=== PATIENT | male | born 1970 | race Caucasian/White ===

== ENCOUNTER 2016-09-30 20:20 | Inpatient (IN) | payer SELFPAY ==
[~2016-09-30] VITALS: Ht 175.3 cm; Wt 109.9 kg
[2016-09-30] VITALS (8 sets, daily range): BP systolic 132–160; BP diastolic 68–98; PULSE 108–154; RESP 20–38; TEMP 99.8; O2SAT 89–100
[~2016-09-30 20:20] MED LIST: IBUP-232 PO; ROBA750T PO
[2016-09-30] MEDS ORDERED: SODIUM CHLORIDE 0.9% FLUSH 10 ML FLUSH IVF PRN ×2 (20:30→22:15)
[2016-09-30] MEDS ORDERED: methylPREDNISolone SOD SUCC 125 MG/2 ML VIAL IVP ONE (20:30)
[2016-09-30] MEDS ORDERED: MAGNESIUM SULFATE 1 GM PREMIX 100 ML IV ONE (20:30)
[2016-09-30] MEDS: RESP: ALBUTEROL 2.5 MG/IPRATROPIUM 0.5 MG NEB (SCH) INH ×2 (20:30→20:31)
[2016-09-30 20:36] LABS: AUTOMATED NEUTROPHIL # 21.8 TH/MM3 (1.8-7.7); BASOPHIL # 0.1 TH/MM3 (0-0.2); BASOPHIL % 0.3 % (0.0-2.0); EOSINOPHIL % 0.1 % (0.0-4.0); HEMATOCRIT 44.1 % (39.0-51.0); LYMPHOCYTE # 1.5 TH/MM3 (1.0-4.8); MEAN CELL VOLUME 91.1 FL (80.0-100.0); MEAN CORPUSCULAR HEMOGLOBIN 30.6 PG (27.0-34.0); MEAN CORPUSCULAR HGB CONC 33.5 % (32.0-36.0); MONO % 6.2 % (0.0-8.0); NEUT % 87.4 % (16.0-70.0); PLATELET COUNT 314 TH/MM3 (150-450); RED BLOOD COUNT 4.84 MIL/MM3 (4.50-5.90); RED CELL DISTRIBUTION WIDTH 13.3 % (11.6-17.2); WHITE BLOOD COUNT 24.9 TH/MM3 (4.0-11.0)
[2016-09-30 20:40] LABS: HEMO FLAGS DIFF FINAL
--- NOTE | 2016-09-30 20:42 | PD ---
HPI Chief Complaint: Respiratory Distress Time Seen by Provider: 20:24 Travel History International Travel<30 days: No Contact w/Intl Traveler<30days: No Traveled to known affect area: No History of Present Illness HPI 46-year-old male presents to the emergency department by private transportation for marked shortness of breath with wheezing. Patient has history of asthma and has recently been on azithromycin for a sinus infection. No relief from rescue inhaler. Patient complains of marked shortness of breath and speaks in fragmented sentences. No report of chest pain. No fever. PFSH Past Medical History Narrative Medical Asthma bronchitis alcohol use nursing notes reviewed Social History Alcohol Use: Yes (OCC) Tobacco Use: No (JUST QUIT 1 PPD) Substance Use: No Allergies-Medications (Allergen,Severity, Reaction): Coded Allergies: No Known Allergies (Verified , 09/30/16) Reported Meds & Prescriptions Reported Meds & Active Scripts Active Robaxin (Methocarbamol) 750 Mg Tab 750 Mg PO TID PRN Ibuprofen 600 Mg Tab 600 Mg PO TID PRN Narrative Medication Azithromycin rescue inhaler Review of Systems Except as stated in HPI: all other systems reviewed are Neg General / Constitutional: No: Fever HENT: Positive: Congestion Cardiovascular: Positive: Diaphoresis, No: Chest Pain or Discomfort Respiratory: Positive: Cough, Shortness of Breath, Wheezing Gastrointestinal: Positive: Nausea Genitourinary: No: Flank Pain Musculoskeletal: No: Pain Skin: No Rash Neurologic: No: Syncope Psychiatric: Positive: Anxiety Hematologic/Lymphatic: No: Lymph Node Enlargement Physical Exam Narrative GENERAL: Well-developed well-nourished obese male in respiratory distress SKIN: Warm and dry. HEAD: Normocephalic. EYES: No scleral icterus. No injection or drainage. NECK: Supple, trachea midline. No JVD or lymphadenopathy. CARDIOVASCULAR: Increased Regular rate and rhythm without murmurs, gallops, or rubs. RESPIRATORY: Breath sounds equal bilaterally markedly diminished with end expiratory wheezes and prolonged inspiratory to expiratory ratio. No accessory muscle use. GASTROINTESTINAL: Abdomen soft, non-tender, nondistended. MUSCULOSKELETAL: No cyanosis, or edema. BACK: Nontender without obvious deformity. No CVA tenderness. Data Data Last Documented VS Vital Signs Date Time Temp Pulse Resp B/P Pulse Ox O2 Delivery O2 Flow Rate FiO2 09/30/16 21:38 123 24 144/75 95 Nasal Cannula 2 09/30/16 20:20 99.8 Orders Complete Blood Count With Diff (09/30/16 20:24) Basic Metabolic Panel (Bmp) (09/30/16 20:24) B-Type Natriuretic Peptide (09/30/16 20:24) Act Partial Throm Time (Ptt) (09/30/16 20:24) Prothrombin Time / Inr (Pt) (09/30/16 20:24) Magnesium (Mg) (09/30/16 20:24) Ckmb (Isoenzyme) Profile (09/30/16 20:24) Troponin I (09/30/16 20:24) Blood Culture (09/30/16 20:24) Iv Access Insert/Monitor (09/30/16 20:24) Electrocardiogram (09/30/16 20:24) Ecg Monitoring (09/30/16 20:24) Oximetry (09/30/16 20:24) Oxygen Administration (09/30/16 20:24) Chest, Single Ap (09/30/16 20:24) Sodium Chloride 0.9% Flush (Ns Flush) (09/30/16 20:30) Methylprednisolone So Succ Inj (Solumedr (09/30/16 20:30) Albuterol-Ipratropium Neb (Duoneb Neb) (09/30/16 20:30) Lactic Acid (09/30/16 20:24) Magnesium Sulfate 1 Gm Premix (Magnesium (09/30/16 20:30) Ondansetron Inj (Zofran Inj) (09/30/16 20:45) CKMB (09/30/16 20:25) CKMB% (09/30/16 20:25) Albuterol-Ipratropium Neb (Duoneb Neb) (09/30/16 21:00) Piperacil-Tazo 4.5 Gm Premix (Zosyn 4.5 (09/30/16 21:00) Sputum Culture And Gram Stain (09/30/16 20:59) Admit Order (Ed Use Only) (09/30/16 ) ^ Saline Lock (09/30/16 22:04) Resp Oxygen Tye C Titrat 1-4 L (09/30/16 ) Notify Dr: Other (09/30/16 22:04) Sodium Chloride 0.9% Flush (Ns Flush) (10/01/16 09:00) Sodium Chloride 0.9% Flush (Ns Flush) (09/30/16 22:15) Sodium Chlor 0.9% 1000 Ml Inj (Ns 1000 M (09/30/16 22:15) Labs Laboratory Tests Test 09/30/16 20:25 White Blood Count 24.9 TH/MM3 Red Blood Count 4.84 MIL/MM3 Hemoglobin 14.8 GM/DL Hematocrit 44.1 % Mean Corpuscular Volume 91.1 FL Mean Corpuscular Hemoglobin 30.6 PG Mean Corpuscular Hemoglobin 33.5 % Concent Red Cell Distribution Width 13.3 % Platelet Count 314 TH/MM3 Mean Platelet Volume 7.3 FL Neutrophils (%) (Auto) 87.4 % Lymphocytes (%) (Auto) 6.0 % Monocytes (%) (Auto) 6.2 % Eosinophils (%) (Auto) 0.1 % Basophils (%) (Auto) 0.3 % Neutrophils # (Auto) 21.8 TH/MM3 Lymphocytes # (Auto) 1.5 TH/MM3 Monocytes # (Auto) 1.5 TH/MM3 Eosinophils # (Auto) 0.0 TH/MM3 Basophils # (Auto) 0.1 TH/MM3 CBC Comment DIFF FINAL Differential Comment Prothrombin Time 10.2 SEC Prothromb Time International 0.9 RATIO Ratio Activated Partial 23.1 SEC Thromboplast Time Sodium Level 139 MEQ/L Potassium Level 3.6 MEQ/L Chloride Level 106 MEQ/L Carbon Dioxide Level 23.1 MEQ/L Anion Gap 10 MEQ/L Blood Urea Nitrogen 13 MG/DL Creatinine 1.20 MG/DL Estimat Glomerular Filtration 66 ML/MIN Rate Random Glucose 152 MG/DL Lactic Acid Level 4.5 mmol/L Calcium Level 8.9 MG/DL Magnesium Level 2.3 MG/DL Total Creatine Kinase 183 U/L Creatine Kinase MB 4.5 NG/ML Troponin I LESS THAN 0.02 NG/ML B-Type Natriuretic Peptide 80 PG/ML MDM Medical Decision Making Medical Screen Exam Complete: Yes Emergency Medical Condition: Yes Medical Record Reviewed: Yes Interpretation(s) EKG: Sinus tachycardia rate [address] elevation or injury pattern change or ectopy noted Troponin I less than 0.02, not elevated; CK: 183, not elevated; BNP: 80, elevated Lactic acid: 4.5, elevated Last Impressions Chest X-Ray 09/30/162023 Signed Impressions: Service Date/Time: September 20:39 - CONCLUSION: The lungs are clear. Luís Lamb MD CBC & BMP Diagram 09/30/16 20:25 Vital Signs Date Time Temp Pulse Resp B/P Pulse Ox O2 Delivery O2 Flow Rate FiO2 09/30/16 21:38 123 24 144/75 95 Nasal Cannula 2 09/30/16 21:00 154 32 148/89 95 09/30/16 20:45 145 36 154/95 94 Aerosol Mask 2 09/30/16 20:30 94 Aerosol Mask 09/30/16 20:30 147 38 160/97 94 09/30/16 20:20 99.8 148 38 89 Room Air Differential Diagnosis Exacerbation asthma, status asthmaticus, pneumonia, CHF, ACS; also to consider PE, pneumothorax, pleural effusion Narrative Course Patient placed on cardiac rehabilitation program director respiratory notified updraft treatments; patient administered Solu-Medrol 105 mg IV along with 3 DuoNeb updrafts: IV access obtained specimens collected and sent for resulting patient administered Zosyn 4.5 g IV PB patient has taken azithromycin times one dose today Patient with ongoing workup breathing seemed to respond to updraft treatments Patient is improving clinically no longer diaphoretic or markedly decayed neck remains mildly tachycardic Patient able now to speak in complete sentences aware of plan for admission chest x-ray reveals no lobar infiltrate; lactic acid is elevated along with leukocytosis with left shift most likely reflective of infectious process as well as stress demargination and mild dehydration Patient's case discussed with on-call medicine admission for exacerbation asthma and sepsis. Critical Care Narrative Aggregate critical care time was 35 minutes. Time to perform other separately billable procedures was not included in the critical care time. My time did not include minutes spent treating any other patients simultaneously or on activities that did not directly contribute to the patient's treatment. The services I provided to this patient were to treat and/or prevent clinically significant deterioration that could result in: Status asthmaticus, septic shock , respiratory arrest, I provided critical care services requiring my management, as noted below: Chart data review, documentation time, medication orders and management, vital sign assessments/reviewing monitor data, ordering and reviewing lab tests, ordering and interpreting/reviewing x-rays and diagnostic studies, care of the patient and discussion of the patient with the admitting physicians. Sepsis Criteria SIRS Criteria (2 or more): Heart rate over 90, RR > 20 or PaCO2 < 32, WBC > 19339, < 4000 or > 10% bands Sepsis Criteria (SIRS+source): Infect source susp/known (pulmonary) Severe Sepsis (+one): Lactate >2 Physician Communication Physician Communication discussed with Dr Cheek==admit Diagnosis Primary Impression: Exacerbation of asthma Additional Impression: Sepsis Qualified Code: A41.9 - Sepsis, due to unspecified organism Admitting Information Admitting Physician Requests: Karina Whitfield MD Sep 30, 2016 20:42 I provided critical care services requiring my management, as noted below: Chart data review, documentation time, medication orders and management, vital sign assessments/reviewing monitor data, ordering and reviewing lab tests, ordering and interpreting/reviewing x-rays and diagnostic studies, care of the patient and discussion of the patient with the admitting physicians. Sepsis Criteria SIRS Criteria (2 or more): Heart rate over 90, RR > 20 or PaCO2 < 32, WBC > 02470, < 4000 or > 10% bands Sepsis Criteria (SIRS+source): Infect source susp/known (pulmonary) Severe Sepsis (+one): Lactate >2 Physician Communication Physician Communication discussed with Dr Cheek==admit Diagnosis Primary Impression: Exacerbation of asthma Additional Impression: Sepsis Qualified Code: A41.9 - Sepsis, due to unspecified organism Admitting Information Admitting Physician Requests: Karina Whitfield MD Sep 30, 2016 20:42
[2016-09-30 20:43] LABS: CHLORIDE 106 MEQ/L (98-107); POTASSIUM 3.6 MEQ/L (3.5-5.1); SODIUM (NA) 139 MEQ/L (136-145)
[2016-09-30] MEDS ORDERED: ONDANSETRON HCL 4 MG/2 ML VIAL IV PUSH ONE (20:45)
[2016-09-30 20:46] LABS: ANION GAP 10 MEQ/L (5-15); BICARBONATE 23.1 MEQ/L (21.0-32.0); BLOOD UREA NITROGEN 13 MG/DL (7-18); MAGNESIUM 2.3 MG/DL (1.5-2.5)
[2016-09-30 20:48] LABS: APTT (PATIENT) 23.1 SEC (24.3-30.1); INTERNATIONAL NORMALIZED RATIO 0.9 RATIO; PROTHROMBIN TIME - PATIENT 10.2 SEC (9.8-11.6)
[2016-09-30 20:50] LABS: GLOMERULAR FILTRATION RATE 66 ML/MIN (>89)
[2016-09-30 20:53] LABS: CREATINE KINASE 183 U/L (39-308)
[2016-09-30] MEDS ORDERED: PIPERACIL-TAZO 4.5 GM PREMIX 100 ML IV ONE (21:00)
[2016-09-30] MEDS ORDERED: RESP: ALBUTEROL 2.5 MG/IPRATROPIUM 0.5 MG NEB (SCH) NEB ONE (21:00)
[2016-09-30 21:05] LABS: CKMB 4.5 NG/ML (0.5-3.6)
--- NOTE | 2016-09-30 21:18 | RADRPT ---
EXAM DATE/TIME: 09/30/2016 20:39 [facility] COMPARISON: CHEST SINGLE AP, January 31, 2016, 15:14. INDICATIONS : Patient extremely short of breath with history of asthma. MEDICAL HISTORY : asthma SURGICAL HISTORY : None. ENCOUNTER: Initial ACUITY: 1 day PAIN SCORE: 3/10 LOCATION: Bilateral upper chest FINDINGS: A single view of the chest demonstrates the lungs to be symmetrically aerated without evidence of mas s, infiltrate or effusion. The cardiomediastinal contours are unremarkable. Osseous structures are intact. CONCLUSION: The lungs are clear. Luís Lamb MD on September 30, 2016 at 21:17 Board Certified Radiologist. This report was verified electronically.
[2016-09-30] MEDS ORDERED: SENNOSIDES 8.6 MG TAB PO PRN (22:15)
[2016-09-30] MEDS ORDERED: SODIUM CHLORIDE 0.9% FLUSH 10 ML FLUSH IV FLUSH PRN (22:15)
[2016-09-30] MEDS ORDERED: LACTULOSE SYRUP 20 GM/30 ML CUP PO PRN (22:15)
[2016-09-30] MEDS ORDERED: ACETAMINOPHEN/HYDROcodone 325 MG/7.5 MG TAB PO PRN (22:15)
[2016-09-30] MEDS ORDERED: BISACODYL 10 MG SUPP RECTAL PRN (22:15)
[2016-09-30] MEDS ORDERED: SODIUM CHLOR 0.9% 1000 ML INJ 1,000 ML IV ONE ×2 (22:15)
[2016-09-30] MEDS ORDERED: ACETAMINOPHEN/HYDROcodone 325 MG/5 MG TAB PO PRN (22:15)
[2016-09-30] MEDS ORDERED: MAGNESIUM HYDROXIDE SUSP 30 ML CUP PO PRN (22:15)
[2016-09-30] MEDS ORDERED: Vancomycin Consult Pharmacy 1 EA OTHER SCH (22:15)
[2016-09-30] MEDS ORDERED: ACETAMINOPHEN 325 MG TAB PO PRN (22:15)
[2016-09-30] MEDS ORDERED: ONDANSETRON HCL 4 MG/2 ML VIAL IVP PRN (22:15)
[2016-09-30] MEDS ORDERED: RESP: ALBUTEROL 2.5 MG/3 ML NEB (PRN) NEB (22:15)
[2016-10-01] MEDS ORDERED: VANCOMYCIN INJ 2,000 MG in SODIUM CHLORID 0.9% 500 ML INJ 500 ML IV ONE ×2
[2016-10-01] MEDS: methylPREDNISolone SOD SUCC 40 MG/1 ML VIAL IV PUSH SCH ×2 (00:13→06:49)
[2016-10-01] MEDS: BUDESONIDE-FORMOTEROL 160/4.5 MCG INHALER INH SCH ×2 (00:13→08:50)
[2016-10-01 00:15] VITALS: BP 124/66; PULSE 100; RESP 18; TEMP 98.6; O2SAT 98
[2016-10-01 00:45] VITALS: BP 128/70; PULSE 98; RESP 18; O2SAT 98
[2016-10-01 01:28] LABS: BLOOD, URINE TRACE (NEG); GLUCOSE,URINE NEG (NEG); KETONE, URINE NEG (NEG); NITRITE,URINE NEG (NEG)
[2016-10-01 01:38] LABS: URINE COLOR YELLOW (YELLW/STRAW)
[2016-10-01 01:39] LABS: COMMENT (UR) CULT NOT INDICATED; CULTURE IF INDICATED CULT NOT INDICATED; RBC, URINE 0-2 /hpf (0-3); SQUAMOUS EPITHELIAL CELL URINE 0-5 /hpf (0-5); WBC, URINE 0-2 /hpf (0-5)
[2016-10-01 01:50] VITALS: BP 139/92; PULSE 100; RESP 20; TEMP 98; O2SAT 97
[2016-10-01 04:00] VITALS: BP 138/86; PULSE 92; RESP 16; TEMP 96; O2SAT 96
[2016-10-01] MEDS: PIPERACIL-TAZO 4.5 GM PREMIX 100 ML IV SCH ×2 (04:20→08:50)
[2016-10-01 06:54] LABS: AUTOMATED NEUTROPHIL # 12.9 TH/MM3 (1.8-7.7); BASOPHIL % 0.1 % (0.0-2.0); EOSINOPHIL % 0.2 % (0.0-4.0); LYMPH % 3.8 % (9.0-44.0); LYMPHOCYTE # 0.5 TH/MM3 (1.0-4.8); MEAN CELL VOLUME 93.2 FL (80.0-100.0); MEAN CORPUSCULAR HEMOGLOBIN 31.8 PG (27.0-34.0); MEAN CORPUSCULAR HGB CONC 34.1 % (32.0-36.0); MONO % 1.9 % (0.0-8.0); PLATELET COUNT 224 TH/MM3 (150-450); RED BLOOD COUNT 4.08 MIL/MM3 (4.50-5.90); RED CELL DISTRIBUTION WIDTH 13.8 % (11.6-17.2); WHITE BLOOD COUNT 13.7 TH/MM3 (4.0-11.0)
[2016-10-01 07:02] LABS: CHLORIDE 109 MEQ/L (98-107); POTASSIUM 4.2 MEQ/L (3.5-5.1); SODIUM (NA) 143 MEQ/L (136-145)
[2016-10-01 07:05] LABS: HEMO FLAGS DIFF FINAL
[2016-10-01 07:18] LABS: ALKALINE PHOSPHATASE 58 U/L (45-117); ALT (GPT) 50 U/L (12-78); ANION GAP 9 MEQ/L (5-15); AST (GOT) 29 U/L (15-37); BICARBONATE 25.5 MEQ/L (21.0-32.0); BLOOD UREA NITROGEN 9 MG/DL (7-18); GLOMERULAR FILTRATION RATE 83 ML/MIN (>89); TOTAL BILIRUBIN ADULT 0.4 MG/DL (0.2-1.0)
[2016-10-01] MEDS: RESP: ALBUTEROL 2.5 MG/3 ML NEB (SCH) NEB ×2 (07:46→11:32)
[2016-10-01 07:48] VITALS: O2SAT 99
[2016-10-01 08:00] VITALS: BP 117/81; PULSE 102; RESP 20; TEMP 95.7; O2SAT 94
[2016-10-01] MEDS ORDERED: DOCUSATE SODIUM 50 MG/SENNA 8.6 MG TAB PO SCH (09:00)
[2016-10-01] MEDS ORDERED: SODIUM CHLORIDE 0.9% FLUSH 10 ML FLUSH IV FLUSH SCH ×2 (09:00)
--- NOTE | 2016-10-01 09:08 | HHI.HP ---
[facility] No Primary Care Physician Admission Diagnosis exacerbation asthma; sepsis Diagnoses: Chief Complaint: Shortness of breath Travel History International Travel<30 Days: No Contact w/Intl Traveler <30 Da: No Traveled to Known Affected Are: No Sepsis Criteria SIRS Criteria (2 or more): Heart rate over 90, WBC > 70466, < 4000 or > 10% bands Sepsis Criteria (SIRS+source): Infect source susp/known Severe Sepsis (+one): Lactate >2 Criteria Outcome: Meets SIRS criteria, Meets sepsis criteria History of Present Illness Written by Kamilla Morrison, acting as scribe for Dr. Do on 10/01/16 at 08:47. Patient is a 46-year-old male with primary medical history of asthma, bronchitis who came into the hospital for evaluation of increasing shortness of breath. Patient states that yesterday he was at work and felt that he was wheezing and he was using his inhaler which was working. When he went home after work, he continued to wheeze and he continued to use his inhaler, stated it didn't work anymore. He states he is using Ventolin as inhaler and no other medications. He was having chest pain yesterday due to increasing shortness of breath and states it's from tightness of his chest. He also reports sweating, he is being treated for a sinus infection about 3 days ago and was started by his PCP with azithromycin which she toook 2 days. States sinus congestion, headache is "not there anymore." Complains of earache. Also complains of continued shortness of breath with activity. Denies pain and discomfort. Denies chest pain, palpitations, headaches, dizziness. Denies fevers, chills, n/ v/d. Denies dysuria. Review of Systems Except as stated in HPI: all other systems reviewed are Neg Past Family Social History Past Medical History Asthma Bronchitis Past Surgical History None Reported Medications Reported Meds & Active Scripts Active Robaxin (Methocarbamol) 750 Mg Tab 750 Mg PO TID PRN Ibuprofen 600 Mg Tab 600 Mg PO TID PRN Allergies: Coded Allergies: No Known Allergies (Verified , 09/30/16) Active Ordered Medications Current Medications Medications (Trade) Dose Ordered Sig/Anel Route Start Time Stop Time Status Last Admin Pharmacy Profile Note 0 ml @ 0 mls/hr UNSCH OTHER 09/30/16 22:15 (Zosyn 4.5 Gm Premix) 100 ml @ 200 mls/hr Q6H IV 10/01/16 03:00 10/01/16 04:20 (SoluMEDROL INJ) 40 mg Q6HR IV PUSH 10/01/16 00:00 10/01/16 06:49 (Symbicort 160-4.5 Inh) 2 puff Q12HR INH 09/30/16 22:15 10/01/16 00:13 (NS Flush) 2 ml UNSCH PRN IV FLUSH 09/30/16 22:15 (NS Flush) 2 ml BID IV FLUSH 10/01/16 09:00 (Zofran Inj) 4 mg Q6H PRN IVP 09/30/16 22:15 (Tylenol) 650 mg Q6H PRN PO 09/30/16 22:15 (Zahl 5-325 Mg) 1 tab Q4H PRN PO 09/30/16 22:15 (Zahl 7.5-325 Mg) 1 tab Q4H PRN PO 09/30/16 22:15 (Heidi-Colace) 1 tab BID PO 10/01/16 09:00 (Milk Of Magnesia Liq) 30 ml Q12H PRN PO 09/30/16 22:15 (Senokot) 17.2 mg Q12H PRN PO 09/30/16 22:15 (Dulcolax Supp) 10 mg DAILY PRN RECTAL 09/30/16 22:15 (Lactulose Liq) 30 ml DAILY PRN PO 09/30/16 22:15 Family History Denies any significant family medical history. States parents are healthy. Social History Occasional alcohol use Former smoker, quit about 5 years ago, 1 pack per day 15 years Denies illicit drug use Physical Exam Vital Signs Vital Signs Date Time Temp Pulse Resp B/P Pulse Ox O2 Delivery O2 Flow Rate FiO2 10/01/16 08:00 95.7 102 20 117/81 94 10/01/16 07:48 99 Nasal Cannula 2.00 10/01/16 04:00 96.0 92 16 138/86 96 10/01/16 01:50 98.0 100 20 139/92 97 10/01/16 00:45 18 97 Nasal Cannula 2 10/01/16 00:45 98 18 128/70 98 Nasal Cannula 10/01/16 00:15 98.6 100 18 124/66 98 Nasal Cannula 2 09/30/16 23:30 108 20 146/70 09/30/16 23:06 110 20 132/68 100 Nasal Cannula 2 09/30/16 22:50 114 20 142/78 09/30/16 21:38 123 24 144/75 95 Nasal Cannula 2 09/30/16 21:00 96 2 09/30/16 21:00 154 32 148/89 95 09/30/16 20:45 145 36 154/95 94 Aerosol Mask 2 09/30/16 20:30 94 Aerosol Mask 09/30/16 20:30 92 Nasal Cannula 4.00 09/30/16 20:30 38 94 2 09/30/16 20:30 147 38 160/97 94 09/30/16 20:20 99.8 148 38 158/98 89 Room Air Physical Exam GENERAL: This is a well-nourished, well-developed patient, in no apparent distress. SKIN: Warm and dry. HEAD: Normocephalic. EYES: Pupils equal round and reactive. Extraocular motions intact. No scleral icterus. No injection or drainage. ENT: Nose without bleeding. No frontal or maxillary sinus tenderness. Throat without erythema. Uvula midline. Airway patent. Bilateral tympanic membranes without erythema or edema or effusion noted. NECK: Trachea midline. Supple. CARDIOVASCULAR: Regular rate and rhythm without murmurs, gallops, or rubs. RESPIRATORY: mild Inspiratory and expiratory wheezes noted. not using accessory muscles GASTROINTESTINAL: Abdomen soft, non-tender, nondistended. No guarding. Bowel sounds active 4. MUSCULOSKELETAL: Extremities without edema. No joint tenderness, effusion, or edema noted. NEUROLOGICAL: Awake and alert. Motor and sensory grossly within normal limits. Normal speech. Laboratory Laboratory Tests Test 09/30/16 09/30/16 10/01/16 10/01/16 20:25 23:35 01:20 05:30 White Blood Count 24.9 13.7 Red Blood Count 4.84 4.08 Hemoglobin 14.8 13.0 Hematocrit 44.1 38.0 Mean Corpuscular Volume 91.1 93.2 Mean Corpuscular Hemoglobin 30.6 31.8 Mean Corpuscular Hemoglobin 33.5 34.1 Concent Red Cell Distribution Width 13.3 13.8 Platelet Count 314 224 Mean Platelet Volume 7.3 8.1 Neutrophils (%) (Auto) 87.4 94.0 Lymphocytes (%) (Auto) 6.0 3.8 Monocytes (%) (Auto) 6.2 1.9 Eosinophils (%) (Auto) 0.1 0.2 Basophils (%) (Auto) 0.3 0.1 Neutrophils # (Auto) 21.8 12.9 Lymphocytes # (Auto) 1.5 0.5 Monocytes # (Auto) 1.5 0.3 Eosinophils # (Auto) 0.0 0.0 Basophils # (Auto) 0.1 0.0 CBC Comment DIFF FINAL DIFF FINAL Differential Comment Prothrombin Time 10.2 Prothromb Time International 0.9 Ratio Activated Partial 23.1 Thromboplast Time Sodium Level 139 143 Potassium Level 3.6 4.2 Chloride Level 106 109 Carbon Dioxide Level 23.1 25.5 Anion Gap 10 9 Blood Urea Nitrogen 13 9 Creatinine 1.20 0.98 Estimat Glomerular Filtration 66 83 Rate Random Glucose 152 151 Lactic Acid Level 4.5 5.2 2.7 Calcium Level 8.9 8.1 Magnesium Level 2.3 Total Creatine Kinase 183 Creatine Kinase MB 4.5 Troponin I LESS THAN 0.02 B-Type Natriuretic Peptide 80 Urine Color YELLOW Urine Turbidity CLEAR Urine pH 5.0 Urine Specific Golden 1.018 Urine Protein TRACE Urine Glucose (UA) NEG Urine Ketones NEG Urine Occult Blood TRACE Urine Nitrite NEG Urine Bilirubin NEG Urine Leukocyte Esterase NEG Urine RBC 0-2 Urine WBC 0-2 Urine Squamous Epithelial 0-5 Cells Urine Bacteria NONE Microscopic Urinalysis Comment CULT NOT INDICATED Total Bilirubin 0.4 Aspartate Amino Transf 29 (AST/SGOT) Alanine Aminotransferase 50 (ALT/SGPT) Alkaline Phosphatase 58 Total Protein 6.7 Albumin 3.4 Date/Time Procedure Status Source Growth 09/30/16 23:35 Gram Stain Received Sputum Expectorated Sputum Pending 09/30/16 23:35 Sputum Culture Received Sputum Expectorated Sputum Pending 09/30/16 20:30 Aerobic Blood Culture Received Blood Peripheral Pending 09/30/16 20:30 Anaerobic Blood Culture Received Blood Peripheral Pending Result Diagram: 10/01/16 0530 10/01/16 0530 Imaging Last Impressions Chest X-Ray 09/30/162023 Signed Impressions: Service Date/Time: September 20:39 - CONCLUSION: The lungs are clear. Luís Lamb MD Assessment and Plan Problem List: (1) Exacerbation of asthma ICD Code: J45.901 Status: Acute (2) Sepsis ICD Code: A41.9 Status: Acute Assessment and Plan Patient is a 46-year-old male with primary medical history of asthma, bronchitis who came into the hospital for evaluation of increasing shortness of breath. Sepsis Sinus Infection - 2 days prior to be in the hospital urgent is being treated for sinus infection, given azithromycin which she took 2 days only. - Leukocytosis improving 24.9 --> 13.7 - Actiq acid improving 5.2 --> 2.7 - Afebrile overnight - Chest x-ray showed lungs are clear - Blood cultures pending, sputum cultures pending - Patient was given Zosyn, vancomycin x1 - If patient continues to improve today, will DC home with continued use of azithromycin as a tennis anti-inflammatory components which could help with concurrent asthma exacerbation. 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 May benefit with use of nebulizer at home. Will DC patient with nebulizer equipment. We'll consult case management. - Walk tests to determine if patient needing home oxygen - Discuss nebulization use, and compliance. Verbalized understanding. DVT prop ambulatory This note was transcribed by tuan Morrison. I, Dr. Brigida Do personally performed the history, physical exam, and medical decision making; and confirmed the accuracy of the information in the transcribed note. Authenticated by Dr. Brigida Do on 10/01/16 at 08:47. Code Status Full code Discussed Condition With Walk test was performed and pt passed. No need for home oxygen. Pt feels much better and is comfortable going home today. will go ahead and d/c him home scripts in chart regular diet activity adlib condition: stable Physician Certification 2 Midnight Certification Type: Admission for Inpatient Services Order for Inpatient Services The services are ordered in accordance with Medicare regulations or non- Medicare payer requirements, as applicable. In the case of services not specified as inpatient-only, they are appropriately provided as inpatient services in accordance with the 2-midnight benchmark. Estimated LOS (days): 2 days is the estimated time the patient will need to remain in the hospital, assuming treatment plan goals are met and no additional complications. Post-Hospital Plan: Home Problem Qualifiers (1) Sepsis: Qualified Code: A41.9 - Sepsis, due to unspecified organism Kamilla Valente Oct 01, 2016 09:08 Brigida Do MD Oct 01, 2016 16:31
[2016-10-01] MEDS ORDERED: NEBULIZER1 MI1 (11:50)
--- NOTE | 2016-10-01 11:52 | HHI.DCPOC ---
Discharge Care Plan Your Health Problems Are: Cough Shortness of Breath Goals to Promote Your Health * To prevent worsening of your condition and complications * To maintain your health at the optimal level Directions to Meet Your Goals Take your medications as prescribed Follow your dietary instruction Follow activity as directed Keep your appointments as scheduled Take your immunizations and boosters as scheduled If your symptoms worsen call your PCP, if no PCP go to Urgent Care Center or Emergency Room Smoking is Dangerous to Your Health. Avoid second hand smoke Call the 24-hour hour crisis hotline for domestic abuse at Kamilla Valente Oct 01, 2016 11:52
[2016-10-01] MEDS ORDERED: SYMB160A INH (11:54)
[2016-10-01] MEDS ORDERED: AZIT250T3 PO (11:54)
[2016-10-01] MEDS ORDERED: ALBU0.08 NEB (11:54)
[2016-10-01] MEDS ORDERED: PRED20 PO (11:54)
--- NOTE | 2016-10-01 12:07 | EKG ---
Date Performed: 09/30/2016 Time Performed: 22:04:12 PTAGE: 46 years EKG: SINUS TACHYCARDIA Normal ECG NO PREVIOUS TRACING DOCTOR: Deep Cadet Interpretating Date/Time 10/01/2016 12:06:05
[2016-10-02] MEDS ORDERED: VANCOMYCIN INJ 2,000 MG in SODIUM CHLORID 0.9% 500 ML INJ 500 ML IV SCH ×2
[2016-10-02] MEDS ORDERED: PHARMACY ORDERED LAB ONE (11:45)
== END 2016-10-01 12:22 | disposition home or self-care (01) | DRG 872 ==
LOC: PHED 20:20 → PHEDA 22:05 → PH3B 10-01 01:46
PROVIDERS: ADMIT Hospitalist; ATTEND Hospitalist
DX: A41.9 Sepsis, unspecified organism (principal); J45.901 Unspecified asthma with (acute) exacerbation; J40 Bronchitis, not specified as acute or chronic; J32.9 Chronic sinusitis, unspecified; Z87.891 Personal history of nicotine dependence
CPT/HCPCS: 71010; 80048; 80053; 81001; 82550; 82552; 83605; 83735; 83880; 84484; 85025; 85610; 85730; 87040; 87070; 87205; 93005; 94620; 94640; 94664; 96365; 96367; 96375; J2405; J2543; J2920; J2930; J3370; J3475; J7030; J7040; J7613